=== PATIENT | female | born 1950 | race Caucasian/White ===

== ENCOUNTER → 2017-10-24 09:59 | Outpatient (CLI) | payer MEDICARE, SELFPAY | PROVIDERS: Family Provider Internal Medicine; PCP Internal Medicine; Visit Provider Internal Medicine | DX: Z78.0 Asymptomatic menopausal state (principal) | CPT/HCPCS: 77080 ==

== ENCOUNTER 2019-07-13 02:50 | Emergency (ER) | payer MEDICARE, SELFPAY ==
[2019-07-13 02:51] VITALS: BP 171/95; PULSE 80; RESP 16; TEMP 36.6; O2SAT 98; BMI 40.8
--- NOTE | 2019-07-13 03:02 | CT_ITS ---
STUDY: CT ABDOMEN AND PELVIS WITHOUT CONTRAST REASON FOR EXAM: Female, 68 years old. Sharp upper abdomen pain this evening. No vomiting. Hx of diabetes and HTN. Bilateral leg stents RADIATION DOSAGE (If Supplied By Facility): CTDIvol = ( 22.98 ) mGy, DLP = ( 1171.05 ) mGycm TECHNIQUE: Transaxial images were obtained from the dome of the diaphragm to the symphysis pubis without oral contrast, and without intravenous contrast. Sagittal and coronal images were reconstructed. Individualized dose optimization techniques were used for this CT. COMPARISON: None. FINDINGS: The visualized lung bases are unremarkable. The visualized portions of the heart are within normal limits. There is decreased attenuation of the liver consistent with steatosis. Normal gallbladder and extrahepatic biliary system. Normal spleen. Normal pancreas. Normal right adrenal gland. Small nodule within the left adrenal gland measuring 1.7 x 1.5 cm with Hounsfield units consistent with adenoma. Mild right pelviectasis otherwise normal right kidney. Normal left kidney. Normal visualized stomach. Mild distention of the proximal small bowel loops up to 2.6 cm in maximum dimension with borderline thickening of the wall which may indicate nonspecific enteritis. No significant distention to suggest bowel obstruction. Normal colon. The appendix is visualized and appears normal. There is diffuse atherosclerotic calcification of the abdominal aorta, without a demonstrated aneurysm. Normal inferior vena cava. Normal retroperitoneum. Normal urinary bladder. Anteverted uterus. Normal abdominal wall. There are diffuse degenerative changes of the visualized lumbar spine. CT/Abdomen/Pelvis without Cont IMPRESSION: Diffuse fatty liver. Small left adrenal adenoma as described. Remainder of abdominal viscera are unremarkable. No acute appendicitis. Possible nonspecific enteritis. Differential diagnosis includes early partial small bowel obstruction. Remainder of the exam otherwise unremarkable. Electronically Signed: Leola Jackson MD at 3:52 EDT , Service support ,
--- NOTE | 2019-07-13 03:03 | EKG12_ITS ---
Test Reason : ABD PAIN Blood Pressure : / mmHG Vent. Rate : 084 BPM Atrial Rate : 084 BPM P-R Int : 138 ms QRS Dur : 060 ms QT Int : 348 ms P-R-T Axes : 062 096 083 degrees QTc Int : 411 ms Sinus rhythm with Premature supraventricular complexes Rightward axis Low voltage QRS Septal infarct , age undetermined Abnormal ECG Confirmed by SHAWNA VALE, JAYMIE ([id number]), newspaper copy editor AKIN VERA ([id number]) on 07/16/2019 3:19:44 PM Referred By: SHAYNA Confirmed By:JAYMIE MATOS MD
--- NOTE | 2019-07-13 03:04 | ED.VIS.GEN ---
History of Present Illness Chief Complaint: Abd Pain Informant: Patient Onset: Today Current Severity: Moderate Maximum Severity: Moderate Narrative: Patient presents with upper abdominal pain. She states when she went to bed last evening she started having sharp pains in her upper abdomen. She does have some pain in her lower back as well. She initially thought she did have a bowel movement. She went to the restroom and was able to pass some gas but nothing else. She does report some nausea but no vomiting. She states that the pain started after she took her evening medication. She states sometimes she will swallow air with her pills and she thought she needed to belch, but was unable to. Patient denies reflux type symptoms. She is had no fever or chills. She denies any prior abdominal surgeries. - Past Medical History (1) High cholesterol Status: Chronic (2) Diabetes Status: Chronic (3) Depression Status: Chronic (4) Chronic pain syndrome Status: Chronic (5) HTN (hypertension) Status: Chronic Past Medical History - Allergies and Home Meds Allergies/Adverse Reactions: Allergies iodine Allergy (Verified 07/13/19 02:54) Shortness of breath Primary Care Physician: Triny Ramos DO [Primary Care Provider] - Prior records reviewed: Yes Smoking Status: Former smoker Review of Systems General: Denies: Chills, Fever Eyes: Denies: Visual changes - bilaterally ENT: Denies: Bilateral ear pain Cardiovascular: Denies: Chest pain, Palpitations Respiratory: Denies: Dyspnea, Cough Gastrointestinal: Reports: Abdominal pain, Nausea. Denies: Vomiting, Diarrhea Genitourinary: Denies: Dysuria Musculoskeletal: Reports: Back pain. Denies: Swelling, Extremity Pain Skin: Denies: Rash Neurological: Denies: Headache Psych: Denies: Depression Hematologic: Denies: Easy bruising, Easy bleeding Allergy: Denies: Uticaria Physical Exam Vital Signs/Narrative: Vital Signs Temp Pulse Resp BP Pulse Ox 07/13/19 02:51 97.8 F 80 16 171/95 H 98 Inital Vital Signs reviewed: Yes General: Well nourished, Well developed Head: Normocephalic ENT: Moist mucous membranes Neck: Supple Cardiovascular: Regular rate, Regular rhythm Respiratory: No distress, CTA bilaterally Abdomen: Soft, Normal bowel sounds - Normal to slightly hyperactive bowel sounds., Tender - Mild epigastric tenderness.. Negative for: Guarding, Rebound tenderness Extremities: Nontender Skin: Normal color Neurological: Alert, Oriented x3 Psychological: Normal affect Diagnostic/Tx/Re-eval Impressions Abdomen/Pelvis CT 07/13/19 03:02 IMPRESSION: Diffuse fatty liver. Small left adrenal adenoma as described. Remainder of abdominal viscera are unremarkable. No acute appendicitis. Possible nonspecific enteritis. Differential diagnosis includes early partial small bowel obstruction. Remainder of the exam otherwise unremarkable. Electronically Signed: Leola Jackson MD at 3:52 EDT , Service support , 07/13/19 03:02 Abdomen/Pelvis without Cont [CT] Stat Laboratory Results 07/13/19 07/13/19 07/13/19 02:56 02:56 03:15 WBC 6.4 RBC 5.14 Hgb 15.1 H Hct 46.2 MCV 89.9 MCH 29.4 MCHC 32.7 RDW Std Deviation 42.9 RDW Coeff of Buzz 13.2 Plt Count 247 MPV 9.3 Immature Gran % (Auto) 0.500 Neut % (Auto) 46.6 L Lymph % (Auto) 34.6 [place] % (Auto) 11.1 H Eos % (Auto) 5.9 H Baso % (Auto) 1.3 H Absolute Neuts (auto) 3.0 Absolute Lymphs (auto) 2.21 Nucleated RBC % 0 Sodium 137 Potassium 4.0 Chloride 99 Carbon Dioxide 29.0 Anion Gap 9 BUN 24 H Creatinine 1.50 H Estim Creat Clear Calc 32.75 Est GFR (MDRD) Af Amer 45 L Est GFR (MDRD) Non-Af 37 L BUN/Creatinine Ratio 16.0 Glucose 247 H Calcium 9.2 Total Bilirubin 0.20 Direct Bilirubin 0.08 AST 18 ALT 31 Alkaline Phosphatase 74 Total Protein 7.5 Albumin 3.5 Globulin 4.0 Lipase 129 Urine Color Yellow Urine Clarity Sl. Cloudy Urine pH 6.0 Ur Specific [place] 1.015 Urine Protein 30 H Urine Glucose (UA) 1000 H Urine Ketones Negative Urine Occult Blood Negative Urine Nitrite Negative Urine Bilirubin Negative Urine Urobilinogen Normal Ur Leukocyte Esterase 100 H Urine RBC 0 SEEN Urine WBC 0-5 SEEN Ur Squamous Epith Cells 0-5 SEEN Urine Bacteria 1+ Urine Mucus 0 SEEN - EKG Initial EKG Interpretation: Sinus Rhythm - Sinus at [address] change. - Medical Decision Making Patient was given morphine, Zofran, and IV fluids. On repeat evaluation she feels significantly improved. We discussed her test results. Although she has not eaten in the last 4 to 5 hours she still has significant amount material sitting in her stomach. I will write her prescription for Reglan to use as needed to help with motility. She does have diabetes and may have some slowed motility secondary to this. Patient does not have prior abdominal surgery making bowel obstruction less likely. She has been able to pass gas since this started. She was given return instructions. ED Disposition - Plan for ED Patient: Disposition: Home or Assisted Living Diagnosis: Abdominal pain Instructions: ED Abdominal Pain Unkn Cause Fem Prescriptions: Metoclopramide [Reglan] 10 mg PO 4X/DAY PRN #20 tab PRN Reason: Nausea Transmission Status: Pending to [facility] Referrals: Triny Ramos DO [Primary Care Provider] - 3-5 Days if not improving
[2019-07-13 03:18] LABS: Color, Urine Yellow (Yellow); Glucose, Dipstick 1000 mg/dl (Normal); Ketone-Dipstick Negative (Negative); Leukocyte Esterase-Dipstick 100 /ul (Negative); Mucous, Urine 0 SEEN /hpf (<or=2+); Nitrite-Dipstick Negative (Negative); Occult Blood-Urine Negative /ul (Negative); Protein-Dipstick 30 mg/dl (Negative); Red Blood Cells-Urine 0 SEEN /hpf (0-5); Specific Gravity, Urine 1.015 (1.002-1.030); Urine Bilirubin Dipstick Negative (Negative); Urine Clarity Sl. Cloudy (Clear); Urine Urobilinogen Normal (Normal)
[2019-07-13 03:21] LABS: Absolute Lymphocyte Count 2.21 X10^3/uL (0.83-4.51); Basophil# 0.08 X10^3/uL; Basophil% 1.3 % (0-1); Eosinophil# 0.38 X10^3/uL; Eosinophils% 5.9 % (0-5); Hematocrit 46.2 % (37-47); Hemoglobin 15.1 g/dL (12.0-15.0); Lymphocyte # 2.21 X10^3/ul (4.0); Lymphocyte % 34.6 % (19-41); Mean Corp Hgb Conc 32.7 g/dL (32-36); Mean Corpuscular Hgb 29.4 pg (27.0-32.0); Mean Corpuscular Volume 89.9 fL (81-99); Mean Platelet Vol. 9.3 fl (6.2-12.0); Monocyte# 0.71 X10^3/uL; Monocyte% 11.1 % (0-10); NRBC Flagged by Analyzer 0 % (0-5); Neutrophil # 2.98 X10^3/uL (2.7-7.7); Neutrophil % 46.6 % (47-70); Platelet Count 247 K/mm3 (150-450); RBC Distribution Width CV 13.2 % (11.6-14.6); RBC Distribution Width SD 42.9 fl (35.1-43.9); Red Blood Count 5.14 M/mm3 (4.2-5.4); White Blood Count 6.4 K/mm3 (4.4-11.0)
[2019-07-13] MEDS: Ondansetron 4 MG/2 ML Vial IV (03:22)
[2019-07-13] MEDS: 0.9% Normal Saline 1,000 ML 150 ML IV (03:22)
[2019-07-13] MEDS: Morphine 4 MG/ML Syringe IV (03:23)
[2019-07-13 03:27] LABS: Bacteria 1+ /hpf (None Seen); Squamous Epithelial Cells - UA 0-5 SEEN /hpf (5-10); White Blood Cells 0-5 SEEN /hpf (0-5)
[2019-07-13 03:36] LABS: AST(SGOT) 18 U/L (15-37); Alanine Aminotransfer ALT/SGPT 31 U/L (13-56); Albumin, Serum 3.5 g/dL (3.2-5.0); Alkaline Phosphatase 74 U/L (45-117); Anion Gap 9 (5-15); BUN 24 mg/dL (7-18); Bilirubin, Direct 0.08 mg/dL (0.00-0.30); Calcium,Total 9.2 mg/dL (8.5-10.1); Chloride 99 mmol/L (98-107); EST Glomerular Filtration Rate 37 mL/min (>60); Est Glom Filt Rate - Afr Amer 45 mL/min (>60); Estimated Creatinine Clearance 32.75 ml/min; Glucose 247 mg/dL (74-106); Lipase 129 U/L (73-393); Protein, Total 7.5 g/dL (6.4-8.2); Sodium Level 137 mmol/L (136-145)
[2019-07-13 04:21] VITALS: BP 153/63; PULSE 62; RESP 16; O2SAT 94
== END 2019-07-13 04:22 | disposition home or self-care (01) ==
PROVIDERS: Emergency Provider Emergency Medicine; PCP Internal Medicine
DX: R10.9 Unspecified abdominal pain (principal); R11.0 Nausea; E11.9 Type 2 diabetes mellitus without complications; K76.0 Fatty (change of) liver, not elsewhere classified; D35.02 Benign neoplasm of left adrenal gland; I10 Essential (primary) hypertension; F32.9 Major depressive disorder, single episode, unspecified; E78.00 Pure hypercholesterolemia, unspecified; G89.4 Chronic pain syndrome; Z87.891 Personal history of nicotine dependence
CPT/HCPCS: 74176; 80048; 80076; 81001; 83690; 85025; 93005; 96361; 96374; 96375; 99283; J7030; A4216; J2405

== ENCOUNTER → 2019-10-02 10:03 | Outpatient (CLI) | payer MEDICARE, SELFPAY ==
[2019-10-02 10:33] LABS: Potassium 4.9 mmol/L (3.5-5.1)
== END ==
PROVIDERS: PCP Internal Medicine; Referring Provider Nurse Practitioner; Visit Provider Nurse Practitioner
DX: E87.5 Hyperkalemia (principal)
CPT/HCPCS: 84132

== ENCOUNTER → 2019-11-05 14:18 | Outpatient (CLI) | payer MEDICARE, SELFPAY ==
--- NOTE | 2019-11-05 14:24 | BD_ITS ---
STUDY: DUAL ENERGY X-RAY ABSORPTIOMETRY / DXA REASON FOR EXAM: Female, 69 years old. 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 COMPARISON: Comparison is made with prior study dated 10/24/2017. FINDINGS: Lumbar Spine (L1-L4): g/cm2 (1.501) / T-score (2.7) / Z-score (4.3) Findings are suggestive of normal bone density with a low fracture risk. Left Femur Total: g/cm2 (1.118) / T-score (0.9) / Z-score (2.2) Left Femoral Neck: g/cm2 (1.060) / T-score (0.2) / Z-score (1.8) Right Femur Total: g/cm2 (1.054) / T-score (0.4) / Z-score (1.7) Right Femoral Neck: g/cm2 (1.058) / T-score (0.1) / Z-score (1.7) The T-Scores on the most recent prior examination were: Lumbar Spine (L1-L4): There has been improvement of bone density since the previous examination. Left Femur Total: which represents a worsening of 0.1%. Right Femur Total: which represents a worsening of 2.4%. BD/Dexa Bone Density Study IMPRESSION: The patient is considered normal as outlined below according to World Eliel Organization (WHO) criteria with a low fracture risk. There has been worsening of bone density since the previous examination. Reference Information: The T-score is the number of standard deviations above or below the standard which is normal for young adults at their peak bone mineral density. The World Health Organization (WHO) interprets the T-scores as follows: Above -1 Normal bone density Between -1 and -2.5 Osteopenia Equal to / or below -2.5 Osteoporosis As a practical clinical guideline, osteopenia may be graded as follows: Mild -1 through -1.5 Moderate -1.6 through -2.0 Severe -2.1 through -2.4 The Z-score is the number of standard deviations above or below age-matched controls. A Z-score of less than -1.5 would be considered abnormal. References: 1. NIH Osteoporosis and Related Bone Diseases http://www.osteo.org 2. International Society for Clinical Densitometry http://www.iscd.org 3. National Osteoporosis Foundation http://www.nof.org Electronically Signed: Fercho Ricardo, at 15:13 EDT , Service support ,
== END ==
PROVIDERS: PCP Internal Medicine; Referring Provider Internal Medicine; Visit Provider Internal Medicine
DX: Z78.0 Asymptomatic menopausal state (principal)
CPT/HCPCS: 77080

== ENCOUNTER → 2020-01-21 09:23 | Outpatient (CLI) | payer MEDICARE, SELFPAY ==
--- NOTE | 2020-01-21 09:35 | MRI_ITS ---
STUDY: MRI BRAIN WITHOUT CONTRAST REASON FOR EXAM: Female, 69 years old. vision disturbance, loss of equalibrium TECHNIQUEAn MRI was performed utilizing axial diffusion and ADC map images followed by axial T2 and FLAIR and gradient echo images followed by sagittal and axial T1 weighted images. COMPARISON: None. FINDINGS: The diffusion weighted axial images and ADC map images of the head show no evidence of restricted diffusion. The zaynba, medulla and midbrain and cerebellum appear to be normal. The ventricles and sulci are mildly enlarged due to age-related cerebral atrophy.. The cerebral hemispheres show some scattered nonspecific demyelinating changes in the reyes radiata bilaterally which are often found in patients of this age.The basal ganglia appear to be normal. The gradient echo axial images are normal. No evidence of a Chiari I malformation is identified. The V4 segments of the vertebral artery, the basilar artery, the posterior cerebral arteries, the cavernous and supraclinoid carotid arteries, and the M1 segments of the middle cerebral arteries are all normal The orbits including the optic nerves and optic chiasm appear normal. The pituitary and pituitary infundibulum appear to be normal. The inner and outer tables of the skull are normal The frontal, ethmoid, maxillary, and sphenoid sinuses are normal. The mastoid air cells are normal. MRI/Brain without Contrast IMPRESSION: Mild age-related cerebral atrophy and nonspecific periventricular arteriosclerotic mildly changes. These findings are commonly found in patients of this age. Electronically Signed: Duran Talbot, at 15:41 EST Tel , Service support ,
== END ==
PROVIDERS: PCP Internal Medicine; Referring Provider Internal Medicine; Visit Provider Internal Medicine
DX: H53.9 Unspecified visual disturbance (principal)
CPT/HCPCS: 70551

== ENCOUNTER → 2020-01-22 06:49 | Outpatient (CLI) | payer MEDICARE, SELFPAY ==
--- NOTE | 2020-01-22 06:54 | CDU_ITS ---
Reason For Study: VISION DISTURBANCE Rt. Velocities/BP Lt. Velocities/BP Prox CCA 62.1/11.2 cm/sec. Prox CCA 119.8/23.0 cm/sec. Mid CCA 67.3/12.5 cm/sec. Mid CCA 88.8/17.5 cm/sec. Dist CCA 72.5/15.1 cm/sec. Dist CCA 77.3/10.9 cm/sec. Prox ICA 62.5/20.8 cm/sec. Prox ICA 66.2/15.8 cm/sec. Mid ICA 75.7/29.6 cm/sec. Mid ICA 89.5/23.2 cm/sec. Dist ICA 94.1/19.3 cm/sec. Dist ICA 79.7/24.4 cm/sec. Rt. ICA/CCA = 94.1/72.5=1.3. Lt. ICA/CCA = 89.5/88.8=1.0. Prox ECA 98.6/11.2 cm/sec. Prox ECA 121.6/6.6 cm/sec. Rt. Vert. 46.1/10.9 cm/sec. Lt. Vert. 41.6/9.7 cm/sec. Right Extracranial There is homogeneous, smooth atherosclerotic plaque noted in the right common carotid artery. There is intimal thickening but no significant atherosclerotic plaque noted in the right internal carotid artery. There is no significant atherosclerotic plaque noted in the right external carotid artery. Antegrade flow is noted in the right vertebral artery. There is heterogeneous, irregular atherosclerotic plaque noted in the right bulb. Left Extracranial There is homogeneous, smooth atherosclerotic plaque noted in the left common carotid artery. There is homogeneous, smooth atherosclerotic plaque noted in the left internal carotid artery. There is intimal thickening but no significant atherosclerotic plaque noted in the left external carotid artery. Antegrade flow is noted in the left vertebral artery. There is heterogeneous, irregular atherosclerotic plaque noted in the left bulb. Procedure Carotid Duplex [id number]. The exam was diagnostic. Exam performed in department. Interpretation Summary Mild (<50%) stenosis right extracranial internal carotid. Mild (<50%) stenosis left extracranial internal carotid. Flow within the vertebral arteries is antegrade bilaterally. Heterogeneous, irregular atherosclerotic plaque is noted in the carotid bulbs bilaterally, which does not appear to be hemodynamically significant. Ordering Physician: Triny Ramos Referring Physician: Triny Ramos Performed By: Viktoriya Hall, ZECHARIAH, RVT
--- NOTE | 2020-01-22 16:44 | STRESSREP ---
Stress Test Report Pharmacologic myocardial perfusion stress test. 69-year-old lady with a history of chest pain. Stress protocol: Resting EKG demonstrates normal sinus rhythm with a rate of 80 bpm normal intervals are noted resting blood pressure is 122/82 mmHg. 0.4 mg of regadenoson was infused per usual protocol. The maximum heart rate attained was 107 bpm which was 70% of maximum predicted heart rate the maximum workload was 1 metabolic equivalent. At rest there were no ST or T wave changes noted to suggest ischemia at peak infusion nonspecific ST-T wave changes were noted with no meet the criteria for ischemia. No clinical angina was noted. Myocardial perfusion protocol. 14.5 mCi of technetium 99m sestamibi was injected at rest. 0.4 mg of regadenoson was infused per usual protocol. At peak infusion 44.7 mCi of technetium 99m sestamibi was injected stress images were obtained stress and rest images were reconstructed and compared in the short axis vertical long horizontal long axis. Gated images were also obtained for Perfusion SPECT analysis: Review of the stress images demonstrate normal uptake of tracer noted in all areas of the myocardium the resting images similar demonstrate normal uptake of tracer noted in all areas of the myocardium. No reversibility is noted suggest ischemia no previous infarct is noted. Gated SPECT analysis: The gated ejection fraction is 70%. Conclusion: Normal pharmacologic myocardial perfusion stress test. Preserved ejection fraction.
== END ==
PROVIDERS: PCP Internal Medicine; Referring Provider Internal Medicine; Visit Provider Internal Medicine
DX: R94.31 Abnormal electrocardiogram [ECG] [EKG] (principal); H53.133 Sudden visual loss, bilateral; R11.0 Nausea
CPT/HCPCS: 78452; 93017; 93880; A9500; A4216; J2785

== ENCOUNTER → 2020-10-10 11:57 | Outpatient (CLI) | payer MEDICARE, SELFPAY ==
[2020-10-10 12:51] LABS: Potassium 4.5 mmol/L (3.5-5.1)
== END ==
PROVIDERS: PCP Internal Medicine; Referring Provider Internal Medicine; Visit Provider Internal Medicine
DX: E87.5 Hyperkalemia (principal)
CPT/HCPCS: 36415; 84132

== ENCOUNTER 2021-02-02 11:37 | Emergency (ER) | payer MEDICARE, SELFPAY ==
[2021-02-02 11:38] VITALS: BP 192/88; PULSE 81; RESP 18; TEMP 36.3; O2SAT 100; BMI 40.6
--- NOTE | 2021-02-02 13:00 | CT_ITS ---
STUDY: CT Abdomen And Pelvis W/O Contrast Injection 02/02/2021 3:29 PM REASON FOR EXAM: Female, 70 years old. ABDOMINAL PAIN LLQ pain TECHNIQUE: Transaxial images were obtained without oral contrast, and without intravenous contrast. Individualized dose optimization techniques were used for this CT. COMPARISON: 07.13.19. FINDINGS: The visualized lung bases are unremarkable. The visualized portions of the heart are within normal limits. There is decreased attenuation of the liver consistent with steatosis. Normal gallbladder and extrahepatic biliary system. Normal spleen. Normal pancreas. Normal bilateral adrenal glands. No acute findings of the right kidney. No acute findings of the left kidney. Normal visualized stomach. Normal small intestine. There is subtle inflammation of the distal descending colon suggesting a mild colitis. There is non-visualization of the appendix. There are calcifications of the abdominal aorta. This is consistent for atherosclerotic disease. There is no abdominal aortic aneurysm. Normal inferior vena cava. Subcentimeter mesenteric lymph nodes. Normal urinary bladder. Normal visualized adnexa. Normal abdominal wall. There are diffuse degenerative changes of the visualized lumbar spine. Degenerative findings of the hips. IMPRESSION: (NOT LISTED IN ORDER OF SIGNIFICANCE) Fatty liver. There is subtle inflammation of the distal descending colon suggesting a mild colitis. Other findings as above. Electronically Signed: Patrice Pastrana MD at 15:37 EST , Service support , CT/Abdomen/Pelvis without Cont
--- NOTE | 2021-02-02 13:01 | ED.VIS.GI ---
HPI <Rafiq Palma MD - Last Filed: 02/03/21 07:27> HPI - GI History of Present Illness Chief Complaint: GI Bleed Narrative Narrative: Patient presents with bright red blood per rectum since yesterday afternoon between 2 and 4 PM. She states that she had a normal bowel movement yesterday morning. She was out running errands. She had sharp pain in her left flank that felt like razor blades. She then had a bowel movement, or what she thought was going to be a bowel movement and passed mucus with bright red blood. She states that her anus began to spasm, and she had blood in the toilet. This happened 2 more times overnight. She denies any chest pain or lightheadedness, no syncope. She has some abdominal discomfort in the left upper the lower quadrant. She denies any dysuria or hematuria. The only blood thinner that she takes is a daily full-strength aspirin. She denies any other bleeding diathesis. PFSH <Rafiq Palma MD - Last Filed: 02/03/21 07:27> [facility] Home Medications Lisinopril/Hydrochlorothiazide [Zestoretic 15/02.5 Tablet] 1 tab PO DAILY 12/20/12 [History Last Taken Unknown] amlodipine 5 mg PO DAILY 12/20/12 [History Last Taken Unknown] aspirin 325 mg PO DAILY@0800 12/20/12 [History Last Taken Unknown] glimepiride 2 mg PO DAILY 12/20/12 [History Last Taken Unknown] metformin 500 mg PO BIDCM 12/20/12 [History Last Taken Unknown] simvastatin 20 mg PO QHS 12/20/12 [History Last Taken Unknown] dulaglutide 0.75 mg SQ QWEEK 07/13/19 [History Last Taken Unknown] metoclopramide HCl 10 mg PO 4X/DAY PRN #20 tab 07/13/19 [Rx Last Taken Unknown] ciprofloxacin HCl 500 mg PO BID #20 tablet 02/02/21 [Rx Last Taken Unknown] metronidazole 500 mg PO Q6H #40 tab 02/02/21 [Rx Last Taken Unknown] Allergy/AdvReac Type Severity Reaction Status Date / Time iodine Allergy Shortness Verified 02/02/21 11:37 of breath Social History Smoking Status: Former smoker ROS <Rafiq Palma MD - Last Filed: 02/03/21 07:27> ROS ED ROS Narrative Constitutional: No fever, no chills. HEENT: No sore throat. No neck pain. No loss of vision. No rhinorrhea. Cardiovascular: No chest pain. No palpitations. No pedal edema. Respiratory: No cough, no shortness of breath. Abdominal: Left-sided abdominal pain. No nausea. No vomiting. Positive bright red blood per rectum. Genitourinary: No dysuria. No hematuria. Musculoskeletal: No myalgias. No arthralgias. Neurologic: No headaches. No dizziness. No lightheadedness. Skin: No rash. No change in color. Psychiatric: No depression. No anxiety. EXAM <Rafiq Palma MD - Last Filed: 02/03/21 07:27> Physical Exam Narrative Exam Narrative: Afebrile. Vital signs noted. HEENT: Normocephalic. Atraumatic. PERRL, EOMI. Neck soft and supple. No point tenderness or step off. Cardiovascular: Regular rate and rhythm. No murmurs, rubs, or gallops appreciated. Respiratory: No tachypnea. Lungs clear to auscultation bilaterally. Gastrointestinal: Abdomen soft, nontender, with normoactive bowel sounds. No rebound or guarding. Neurological: Awake. Alert. Nonfocal, nonlateralizing. Skin: No rash. Normal color. No pallor. Musculoskeletal: No pedal edema. Full range of motion extremities. Const Vital Signs: 02/02/21 11:38 02/02/21 15:22 02/02/21 18:18 Temperature 97.4 F L Temperature Source Temporal Pulse Rate 81 80 80 Respiratory Rate 18 18 18 Blood Pressure 192/88 H 136/52 H 137/84 H Blood Pressure Mean 122 80 Pulse Ox 100 96 98 Oxygen Delivery Method Room Air <Dr. Tristan Chavira DO - Last Filed: 02/02/21 17:27> Physical Exam Const Vital Signs: 02/02/21 11:38 02/02/21 15:22 02/02/21 18:18 Temperature 97.4 F L Temperature Source Temporal Pulse Rate 81 80 80 Respiratory Rate 18 18 18 Blood Pressure 192/88 H 136/52 H 137/84 H Blood Pressure Mean 122 80 Pulse Ox 100 96 98 Oxygen Delivery Method Room Air MDM <Rafiq Palma MD - Last Filed: 02/03/21 07:27> [facility] Narrative Medical decision making narrative: Comprehensive work-up was pursued. I will obtain chaperoned rectal examination. CT of the abdomen pelvis was also obtained. Chaperoned rectal examination showed no pura/gross blood or hemorrhage. Stool color/small amount was normal in color and there was a small amount of dark red blood noted. It is Hemoccult positive. She does have a normal white count. She had an elevated lactic acid of 3.0. She was administered 2 L of IV fluids with repeat lactic acid and CT scan pending. At this point in time, patient will be signed out to the oncoming physician to check the results of the CAT scan and make final disposition. Patient is in stable condition. Lab Data Labs: Laboratory Results - last 24 hr 02/02/21 02/02/21 02/02/21 13:31 13:31 13:31 WBC 6.8 RBC 5.14 Hgb 15.0 Hct 45.8 MCV 89.1 MCH 29.2 MCHC 32.8 RDW Std Deviation 41.8 RDW Coeff of Buzz 12.8 Plt Count 286 MPV 9.2 Immature Gran % (Auto) 0.400 Neut % (Auto) 63.0 Lymph % (Auto) 23.8 [place] % (Auto) 6.9 Eos % (Auto) 4.6 Baso % (Auto) 1.3 H Absolute Neuts (auto) 4.3 Absolute Lymphs (auto) 1.62 Nucleated RBC % 0 Sodium 138 Potassium 4.9 Chloride 103 Carbon Dioxide 27.0 Anion Gap 8 BUN 15 Creatinine 1.38 H Estim Creat Clear Calc 34.62 Est GFR (MDRD) Af Amer 49 L Est GFR (MDRD) Non-Af 40 L BUN/Creatinine Ratio 10.9 Glucose 178 H Lactic Acid 3.0 H* Calcium 9.6 Total Bilirubin 0.50 AST 22 ALT 28 Alkaline Phosphatase 79 Total Protein 7.8 Albumin 3.4 Globulin 4.4 H Albumin/Globulin Ratio 0.8 L Urine Color Urine Clarity Urine pH Ur Specific [place] Urine Protein Urine Glucose (UA) Urine Ketones Urine Occult Blood Urine Nitrite Urine Bilirubin Urine Urobilinogen Ur Leukocyte Esterase Urine RBC Urine WBC Ur Squamous Epith Cells Urine Bacteria Urine Mucus 02/02/21 02/02/21 14:50 16:15 WBC RBC Hgb Hct MCV MCH MCHC RDW Std Deviation RDW Coeff of Buzz Plt Count MPV Immature Gran % (Auto) Neut % (Auto) Lymph % (Auto) [place] % (Auto) Eos % (Auto) Baso % (Auto) Absolute Neuts (auto) Absolute Lymphs (auto) Nucleated RBC % Sodium Potassium Chloride Carbon Dioxide Anion Gap BUN Creatinine Estim Creat Clear Calc Est GFR (MDRD) Af Amer Est GFR (MDRD) Non-Af BUN/Creatinine Ratio Glucose Lactic Acid 1.8 Calcium Total Bilirubin AST ALT Alkaline Phosphatase Total Protein Albumin Globulin Albumin/Globulin Ratio Urine Color Yellow Urine Clarity Sl. Cloudy Urine pH 5.0 Ur Specific [place] 1.020 Urine Protein Negative Urine Glucose (UA) 1000 H Urine Ketones Negative Urine Occult Blood Negative Urine Nitrite Negative Urine Bilirubin Negative Urine Urobilinogen Normal Ur Leukocyte Esterase 25 H Urine RBC 0 SEEN Urine WBC 0-5 SEEN Ur Squamous Epith Cells 0-5 SEEN Urine Bacteria 1+ Urine Mucus 0 SEEN Radiography Diagnostic Testing: Clinical Impression(s) from Imaging Studies Abdomen/Pelvis CT 02/02/21 13:00 ADDENDUM: 02/02/21 1550 <Dr. Tristan Chavira, DO - Last Filed: 02/02/21 17:27> [facility] MDM Narrative Medical decision making narrative: Care with patient was turned over to me. CBC was within normal limits. Comprehensive metabolic profile showed a slightly elevated creatinine 1.38. Lactate was 3.0. Urinalysis was ordered and is within normal limits. CT scan of the abdomen and pelvis was obtained. There is evidence of mild colitis. There is no other acute abnormality noted. This was interpreted by the radiologist and reviewed by myself. Patient was given IV fluids. Repeat lactate was ordered and is normal at 1.8. Patient was given a dose of Cipro and Flagyl here. Patient with advised of her findings. Patient was instructed to drink plenty of fluids. Patient was instructed to start with a bland diet. Patient was given prescriptions for Cipro and Flagyl. Patient was instructed to follow-up with her primary care physician in 5 to 7 days. Patient understood and was agreeable with the plan. All questions were answered. Lab Data Attestation: I reviewed the patient's lab results. Labs: Laboratory Results - last 24 hr 02/02/21 02/02/21 02/02/21 13:31 13:31 13:31 WBC 6.8 RBC 5.14 Hgb 15.0 Hct 45.8 MCV 89.1 MCH 29.2 MCHC 32.8 RDW Std Deviation 41.8 RDW Coeff of Buzz 12.8 Plt Count 286 MPV 9.2 Immature Gran % (Auto) 0.400 Neut % (Auto) 63.0 Lymph % (Auto) 23.8 [place] % (Auto) 6.9 Eos % (Auto) 4.6 Baso % (Auto) 1.3 H Absolute Neuts (auto) 4.3 Absolute Lymphs (auto) 1.62 Nucleated RBC % 0 Sodium 138 Potassium 4.9 Chloride 103 Carbon Dioxide 27.0 Anion Gap 8 BUN 15 Creatinine 1.38 H Estim Creat Clear Calc 34.62 Est GFR (MDRD) Af Amer 49 L Est GFR (MDRD) Non-Af 40 L BUN/Creatinine Ratio 10.9 Glucose 178 H Lactic Acid 3.0 H* Calcium 9.6 Total Bilirubin 0.50 AST 22 ALT 28 Alkaline Phosphatase 79 Total Protein 7.8 Albumin 3.4 Globulin 4.4 H Albumin/Globulin Ratio 0.8 L Urine Color Urine Clarity Urine pH Ur Specific [place] Urine Protein Urine Glucose (UA) Urine Ketones Urine Occult Blood Urine Nitrite Urine Bilirubin Urine Urobilinogen Ur Leukocyte Esterase Urine RBC Urine WBC Ur Squamous Epith Cells Urine Bacteria Urine Mucus 02/02/21 02/02/21 14:50 16:15 WBC RBC Hgb Hct MCV MCH MCHC RDW Std Deviation RDW Coeff of Buzz Plt Count MPV Immature Gran % (Auto) Neut % (Auto) Lymph % (Auto) [place] % (Auto) Eos % (Auto) Baso % (Auto) Absolute Neuts (auto) Absolute Lymphs (auto) Nucleated RBC % Sodium Potassium Chloride Carbon Dioxide Anion Gap BUN Creatinine Estim Creat Clear Calc Est GFR (MDRD) Af Amer Est GFR (MDRD) Non-Af BUN/Creatinine Ratio Glucose Lactic Acid 1.8 Calcium Total Bilirubin AST ALT Alkaline Phosphatase Total Protein Albumin Globulin Albumin/Globulin Ratio Urine Color Yellow Urine Clarity Sl. Cloudy Urine pH 5.0 Ur Specific [place] 1.020 Urine Protein Negative Urine Glucose (UA) 1000 H Urine Ketones Negative Urine Occult Blood Negative Urine Nitrite Negative Urine Bilirubin Negative Urine Urobilinogen Normal Ur Leukocyte Esterase 25 H Urine RBC 0 SEEN Urine WBC 0-5 SEEN Ur Squamous Epith Cells 0-5 SEEN Urine Bacteria 1+ Urine Mucus 0 SEEN Radiography Diagnostic Testing: Clinical Impression(s) from Imaging Studies Abdomen/Pelvis CT 02/02/21 13:00 ADDENDUM: 02/02/21 1550 Discharge Plan Triage Chief Complaint: GI Bleed ED Provider: Tristan Chavira Dx/Rx/DC Orders Clinical Impression: Colitis, Gastrointestinal bleeding Instructions: ED Understanding Colitis, ED Lower GI Bleeding (Stable) Prescriptions: New metronidazole [metronidazole] 500 MG tablet 500 mg PO Q6H Qty: 40 RF: 0 ciprofloxacin HCl [ciprofloxacin HCl] 500 MG tablet 500 mg PO BID Qty: 20 RF: 0 No Action metformin 500 MG tablet 500 mg PO BIDCM RF: 0 amlodipine 5 MG tablet 5 mg PO DAILY RF: 0 glimepiride 2 MG tablet 2 mg PO DAILY RF: 0 aspirin 325 MG tablet 325 mg PO DAILY@0800 RF: 0 simvastatin 20 MG tablet 20 mg PO QHS RF: 0 Lisinopril/Hydrochlorothiazide [Zestoretic 20/12.5 Tablet] 1 TABLET tablet 1 tab PO DAILY RF: 0 dulaglutide 0.75 MG/0.5 ML pen injector 0.75 mg SQ QWEEK RF: 0 metoclopramide HCl 10 MG tablet 10 mg PO 4X/DAY PRN (Reason: Nausea) Qty: 20 RF: 0 Primary Care Provider: Triny Ramos Referrals: Triny Ramos DO [Primary Care Provider] - 3-5 Days Disposition Disposition: Home, Self Care Discharge Date/Time: 02/02/21 18:20
[2021-02-02 13:43] LABS: Absolute Lymphocyte Count 1.62 X10^3/uL (0.83-4.51); Absolute Neutrophil Count 4.3 X10^3/uL (2.0-7.7); Basophil# 0.09 X10^3/uL; Basophil% 1.3 % (0-1); Eosinophil# 0.31 X10^3/uL; Eosinophils% 4.6 % (0-5); Hematocrit 45.8 % (37-47); Lymphocyte # 1.62 X10^3/ul (0.83-4.51); Lymphocyte % 23.8 % (19-41); Mean Corp Hgb Conc 32.8 g/dL (32-36); Mean Corpuscular Hgb 29.2 pg (27.0-32.0); Mean Corpuscular Volume 89.1 fL (81-99); Mean Platelet Vol. 9.2 fl (6.2-12.0); Monocyte# 0.47 X10^3/uL; Monocyte% 6.9 % (0-10); NRBC Flagged by Analyzer 0 % (0-5); Neutrophil # 4.28 X10^3/uL (2.7-7.7); Platelet Count 286 K/mm3 (150-450); RBC Distribution Width CV 12.8 % (11.6-14.6); RBC Distribution Width SD 41.8 fl (35.1-43.9); Red Blood Count 5.14 M/mm3 (4.2-5.4); White Blood Count 6.8 K/mm3 (4.4-11.0)
[2021-02-02 14:04] LABS: ALB/GLOB Ratio 0.8 RATIO (0.9-2.4); AST(SGOT) 22 U/L (15-37); Alanine Aminotransfer ALT/SGPT 28 U/L (13-56); Albumin, Serum 3.4 g/dL (3.2-5.0); Alkaline Phosphatase 79 U/L (45-117); Anion Gap 8 (5-15); BUN 15 mg/dL (7-18); BUN/Creat Ratio 10.9 RATIO (10-20); Calcium,Total 9.6 mg/dL (8.5-10.1); Chloride 103 mmol/L (98-107); Creatinine, Serum 1.38 mg/dL (0.55-1.02); EST Glomerular Filtration Rate 40 mL/min (>60); Est Glom Filt Rate - Afr Amer 49 mL/min (>60); Estimated Creatinine Clearance 34.62 ml/min; Globulin 4.4 g/dL (2.2-4.2); Glucose 178 mg/dL (74-106); Potassium 4.9 mmol/L (3.5-5.1); Protein, Total 7.8 g/dL (6.4-8.2); Sodium Level 138 mmol/L (136-145)
[2021-02-02] MEDS: 0.9% Normal Saline 1,000 ML 999 ML IV ×2 (15:02→15:30)
[2021-02-02 15:05] LABS: Mucous, Urine 0 SEEN /hpf (<or=2+)
[2021-02-02 15:22] VITALS: BP 136/52; PULSE 80; RESP 18; O2SAT 96
[2021-02-02 15:31] LABS: Color, Urine Yellow (Yellow); Glucose, Dipstick 1000 mg/dl (Normal); Ketone-Dipstick Negative (Negative); Leukocyte Esterase-Dipstick 25 /ul (Negative); Nitrite-Dipstick Negative (Negative); Occult Blood-Urine Negative /ul (Negative); Protein-Dipstick Negative (Negative); Urine Bilirubin Dipstick Negative (Negative); Urine Clarity Sl. Cloudy (Clear); Urine Urobilinogen Normal (Normal)
[2021-02-02 15:40] LABS: Bacteria 1+ /hpf (None Seen); Red Blood Cells-Urine 0 SEEN /hpf (0-5); Squamous Epithelial Cells - UA 0-5 SEEN /hpf (5-10); White Blood Cells 0-5 SEEN /hpf (0-5)
[2021-02-02] MEDS: Ciprofloxacin 500 MG Tablet PO (16:01)
[2021-02-02] MEDS: metroNIDAZOLE 500 MG Tablet PO (16:01)
[2021-02-02 16:51] LABS: Lactic Acid 1.8 mmol/L (0.4-1.9)
[2021-02-02 17:39] LABS: Reflex Lactate? Y
[2021-02-02 18:18] VITALS: BP 137/84; PULSE 80; RESP 18; O2SAT 98
== END 2021-02-02 18:20 | disposition home or self-care (01) ==
PROVIDERS: Emergency Medicine; Emergency Provider Emergency Medicine; PCP Internal Medicine
DX: K52.9 Noninfective gastroenteritis and colitis, unspecified (principal); K76.0 Fatty (change of) liver, not elsewhere classified; Z79.82 Long term (current) use of aspirin; Z79.84 Long term (current) use of oral hypoglycemic drugs; Z87.891 Personal history of nicotine dependence
CPT/HCPCS: 74176; 80053; 81001; 82274; 83605; 85025; 99284; J7030; A4216

== ENCOUNTER 2021-03-17 09:02 | Day surgery (SDC) | payer MEDICARE, SELFPAY ==
--- NOTE | 2021-03-17 | IMM_PTH ---
PATIENT: LILY SZYMANSKI LOC: EN U#:[id number] AGE/SX: 70/F ROOM: RE03/17/[address]: Dr. Faraz Church DO : 1950 BED: DIS: 03/17/2021 SPEC #: [id number] RECD: 03/19/21 15:01 STATUS: MARCOS REKaye #: [id number] BEATA: 03/17/21 00:[address]: Faraz Church DEPT: IMMUNOHISTOCHEMISTRY RECD BY: Lenora Machado ENTERED: 03/19/21 15:02 SP TYPE: IMMUNO OTHR DR: Dr. Triny Ramos DO Tissues: A - Stomach, NOS Procedures: H Pylori (initial) PHYSICIAN & INSTITUTION [place] [id number] SPECIMEN INFORMATION: Tissue Source: A ? Gastric ulcer biopsy Clinical Info: Diabetes, colitis, GI bleeding Specimen Number: [id number] CPT code: 36378 METHODOLOGY: Deparaffinized sections of prefer/formalin-fixed tissue or PAP/DQ stained slides are incubated with monoclonal/polyclonal antibodies/oligonucleotide probes. Localization is made via biotin free immunoperoxidase method. Appropriate controls are performed and reacted as expected. Results on target cell population are indicated in the following table: RESULTS: ANTIBODY / CLONE RESULT Block A H Pylori (polyclonal) negative These tests were developed and their performance characteristics determined by [facility]. They may not have been cleared or approved by the U.S. Food and Drug Administration. The FDA has determined that such clearance or approval is not necessary. The above immunohistochemical/dualISH markers are ordered and reviewed by the Pathologist. INTERPRETATION: A. Gastric ulcer, biopsy: Negative for Helicobacter pylori organisms. AM:deric 03/22/2021
[2021-03-17 09:27] VITALS: BP 122/74; PULSE 54; RESP 18; TEMP 36.3; O2SAT 100; BMI 39.1
[2021-03-17] MEDS: Lactated Ringers 1,000 ML 15 ML IV (09:40)
--- NOTE | 2021-03-17 09:44 | HP.PCM_ITS ---
History and Physical Date of Admission: 03/17/21 70 F who presents to the office today for Last Monday she had some difficulty with expelling blood clots from rectum overnight. She then presented to [facility] ED on 02/02/21. She was told she had diverticulitis versus colitis and then she was dehydrated. Given two antibiotics and two bags of fluid. Resolution of blood clots. Since stop she had bowel change where her stools were liquid for two days. She then went to more solid bowel movement and then constipation. Current stools are very dark and have the appearance of shredded wheat. Taking Trulicity and when she first started several years ago she had a lot of difficulty with diarrhea that then resolved. Feels she is dehydrated now because of headache, spinning when she moves too quickly. CT abd/pel performed 02/02/21 mild colitis of descending colon. ROS Const Constitutional: Positive for fatigue Cardio Cardiology: Positive for shortness of breath Gastro GI: Positive for abdominal pain, bloating, change in bowel habits, constipation, diarrhea, Blood in stool and nausea/dyspepsia Musc Musculoskeletal: Positive for back pain and stiffness Skin Skin: Positive for dry skin Endo Endocrine: Positive for fatigue Reese/Lymp Hematologic/Lymphatic: Positive for easy bruising Exam Const General: cooperative and comfortable Nutritional Appearance: average body habitus and well nourished HENWY Head: normal to inspection Ears: hearing grossly normal bilaterally Nose: external nose normal Face and sinus: normal facial exam Mouth: oral mucosae normal Throat: posterior oropharynx normal Eyes General: appearance normal, both eyes and all related structures Neck Neck: normal visual inspection Chest Chest palpation & inspection: normal inspection of the chest and normal palpation of entire chest wall Resp Effort & Inspection: normal respiratory effort Auscultation: Bilateral: Clear to Auscultation Cardio Palpation: normal PMI Rate: regular rate Rhythm: regular rhythm GI Inspection: normal to inspection Auscultation: normal bowel sounds Percussion: normal to percussion Palpation: no hepatosplenomegaly Skin General: no rashes or lesions noted Neuro General: patient alert Extrem General: normal to inspection Psych Affect: normal affect Quality Reporting Tobacco Screening ([facility] 138) Smoking Status: Former smoker Assessment and Plan Assessment and Plan (1) Diabetes: Status: Chronic Orders: Orders: Comprehensive Metabolic Profil Today (2) Colitis: Status: Acute Orders: Orders: Comprehensive Metabolic Profil Today Plan - Dr. Ruth Friend, DO: I suspect that she has ischemic colitis. We went over in great detail the natural history of ischemic colitis in the distribution of the inflammation seen on her case CAT scan. We will need to do a colonoscopy to confirm this. For now we will give her a short course of dicyclomine therapy to prevent cramping and hopefully stop her from having of episode. (3) Gastrointestinal bleeding: Status: Acute Orders: Orders: Colonoscopy Today EGD Today Comprehensive Metabolic Profil Today CT ANGIO ABD&PEL W/O&W/DYE Today Plan - Dr. Ruth Friend, DO: GI bleed thought to be secondary ischemic colitis. We will get a CT angiography. We will also get an upper lower endoscopy to evaluate upper lower GI tract. Plan Details Other Medications: New: bisacodyl Take as directed for bowel prep 5 mg PO ONCE 4 tabs 0RF polyethylene glycol 3350 (Miralax) Take as directed for bowel prep 17 grams PO DAILY 238 grams 0RF I have re-examined the patient. There are no clinical changes since date of exam.
[2021-03-17 09:46] LABS: Bedside Glucose 275 mg/dL (70-110)
--- NOTE | 2021-03-17 10:15 | EGD_PTH ---
PATIENT: LILY SZYMANSKI LOC: EN U#:[id number] AGE/SX: 70/F ROOM: RE03/17/[address]: Dr. Faraz Church DO : 1950 BED: DIS: 03/17/2021 SPEC #: [id number] RECD: 03/17/21 12:42 STATUS: MARCOS REKaye #: [id number] BEATA: 03/17/21 10:[address]: Faraz Church DEPT: SURGICAL PATHOLOGY RECD BY: Jojo Ortiz ENTERED: 03/17/21 13:14 SP TYPE: EGD [facility] DR: Dr. Triny Ramos DO Tissues: A - Gastric mucous membrane B - Esophagus, NOS Procedures: Special Stain Group II Surgery Specimen Level IV Alcian Blue/PAS (control) HEADER OPERATION: Colonoscopy, EGD ([facility]) with biopsy, cauterization of GI bleed PRE-OP DIAGNOSIS: Diabetes, colitis, GI bleeding TISSUE SUBMITTED: A ? Gastric ulcer biopsy, B ? Distal esophagus biopsy MICROSCOPIC DIAGNOSIS A. Gastric ulcer, biopsy: Mucosal ulceration with acute and chronic inflammation. See comment. B. Distal esophagus, biopsy: Gastroesophageal junctional mucosa with mild chronic inflammation. No evidence of goblet cell metaplasia. See comment. AM:deric 03/18/2021 COMMENT A. The results of immunohistochemistry for Helicobacter pylori will be reported separately ([id number]). B. Alcian blue/PAS stain with matched control supports the above diagnosis. MICROSCOPIC DESCRIPTION Slides are reviewed. GROSS DESCRIPTION A - Received in fixative is one container labeled with the patient's name and designated gastric ulcer biopsy. The specimen consists of two irregular fragments of light tabor soft tissue that in aggregate measure 0.6 x 0.3 x 0.1 cm. The specimen is totally submitted in one cassette. B - Received in fixative is one container labeled with the patient's name and designated distal esophagus biopsy. The specimen consists of multiple irregular fragments of light tabor soft tissue that in aggregate measure 1 x 0.4 x 0.1 cm. The specimen is totally submitted in one cassette. / JOSIAS:deric 03/17/2021 TC:3 CPT: 99469 x2, 97342
[2021-03-17 10:55] VITALS: BP 120/65; BP 122/74; PULSE 53; RESP 20; TEMP 36.2; O2SAT 97
--- NOTE | 2021-03-17 10:59 | OP.CCLET_ITS ---
11/04/2021 Triny Ramos [address] [place] [address] Re : Upper GI endoscopy procedure for Alize Macedo Dear Dr. Ramos This procedure was performed on Wednesday, March 17, 2021. My impressions and recommendations are as follows: Impressions : - LA Grade A reflux esophagitis. Biopsied. - Moderate Schatzki ring. Dilated. - Small hiatal hernia. - Oozing gastric ulcer with pigmented material. Treated with a heater probe. - Normal second portion of the duodenum. Recommendations : - Discharge patient to home. - Advance diet as tolerated. - Continue present medications. - No aspirin, ibuprofen, naproxen, or other non-steroidal anti-inflammatory drugs for 7 days. - Repeat upper endoscopy in 1 year for surveillance based on pathology results. - Return to GI office. - Use Protonix (pantoprazole) 40 mg PO BID for 8 weeks. My findings are described in the full procedure note, which is enclosed. If I can be of further assistance, please feel free to contact me at . Sincerely, Faraz Church, 03/17/2021 10:58:33 AM This report has been signed electronically.
--- NOTE | 2021-03-17 10:59 | OP.EGD_ITS ---
Patient Name: Alize Macedo Procedure Date: 03/17/2021 9:52 AM Date of : 1950 Age: 70 Procedure: Upper GI endoscopy Indications: Heartburn Providers: Faraz Church DO Referring MD: Faraz Church DO Medicines: See the Anesthesia note for documentation of the administered medications Patient Profile: This is a 70 year old female. Refer to note in patient chart for documentation of history and physical. Patient has symptoms of chronic abdominal cramping. Complications: No immediate complications. Procedure: Pre-Anesthesia Assessment: - Prior to the procedure, a History and Physical was performed, and patient medications and allergies were reviewed. The patient is competent. The risks and benefits of the procedure and the sedation options and risks were discussed with the patient. All questions were answered and informed consent was obtained. Patient identification and proposed procedure were verified by the physician in the pre-procedure area. Mental Status Examination: alert and oriented. Airway Examination: normal oropharyngeal airway and neck mobility. Respiratory Examination: clear to auscultation. CV Examination: normal. Prophylactic Antibiotics: The patient does not require prophylactic antibiotics. Prior Anticoagulants: The patient has taken no previous anticoagulant or antiplatelet agents. ASA Grade Assessment: II - A patient with mild systemic disease. After reviewing the risks and benefits, the patient was deemed in satisfactory condition to undergo the procedure. The anesthesia plan was to use moderate sedation / analgesia (conscious sedation). Immediately prior to administration of medications, the patient was re-assessed for adequacy to receive sedatives. The heart rate, respiratory rate, oxygen saturations, blood pressure, adequacy of pulmonary ventilation, and response to care were monitored throughout the procedure. The physical status of the patient was re-assessed after the procedure. After obtaining informed consent, the endoscope was passed under direct vision. Throughout the procedure, the patient's blood pressure, pulse, and oxygen saturations were monitored continuously. The colonoscope was introduced through the mouth, and advanced to the second part of duodenum. The upper GI endoscopy was accomplished without difficulty. The patient tolerated the procedure well. Moderate Sedation: Moderate (conscious) sedation was administered by the endoscopy nurse and supervised by the endoscopist. The patient's oxygen saturation, heart rate, blood pressure and response to care were monitored. Total physician intraservice time was 15 minutes. Scope In: 10:16:11 AM Scope Out: 10:22:03 AM Total Procedure Duration Time 0 hours 5 minutes 52 seconds Findings: LA Grade A (one or more mucosal breaks less than 5 mm, not extending between tops of 2 mucosal folds) esophagitis with no bleeding was found 34 to 35 cm from the incisors. Biopsies were taken with a cold forceps for histology. Verification of patient identification for the specimen was done. Estimated blood loss was minimal. A moderate Schatzki ring was found in the lower third of the esophagus. A guidewire was placed and the scope was withdrawn. Dilation was performed with a Savary dilator with no resistance at 42 Fr. The dilation site was examined following endoscope reinsertion and showed moderate improvement in luminal narrowing. Estimated blood loss was minimal. A small hiatal hernia was present. One oozing cratered gastric ulcer with pigmented material was found in the gastric body. The lesion was 6 mm in largest dimension. Coagulation for hemostasis using heater probe was successful. Estimated blood loss was minimal. The second portion of the duodenum was normal. Impression: - LA Grade A reflux esophagitis. Biopsied. - Moderate Schatzki ring. Dilated. - Small hiatal hernia. - Oozing gastric ulcer with pigmented material. Treated with a heater probe. - Normal second portion of the duodenum. Recommendation: - Discharge patient to home. - Advance diet as tolerated. - Continue present medications. - No aspirin, ibuprofen, naproxen, or other non-steroidal anti-inflammatory drugs for 7 days. - Repeat upper endoscopy in 1 year for surveillance based on pathology results. - Return to GI office. - Use Protonix (pantoprazole) 40 mg PO BID for 8 weeks. Procedure Code(s): --- Professional --- 19504, 59, Esophagogastroduodenoscopy, flexible, transoral; with control of bleeding, any method 30863, Esophagogastroduodenoscopy, flexible, transoral; with insertion of guide wire followed by passage of dilator(s) through esophagus over guide wire 10503, 59, Esophagogastroduodenoscopy, flexible, transoral; with biopsy, single or multiple 58537, 59, Moderate sedation services provided by the same physician or other qualified health long term acute care registered nurse performing the diagnostic or therapeutic service that the sedation supports, requiring the presence of an independent trained observer to assist in the monitoring of the patient's level of consciousness and physiological status; initial 15 minutes of intraservice time, patient age 5 years or older CPT copyright 2017 [employer]. All rights reserved. The codes documented in this report are preliminary and upon hcc coders review may be revised to meet current compliance requirements. Faraz Church DO 03/17/2021 10:58:33 AM This report has been signed electronically. Number of Addenda: 1 Note Initiated On: 03/17/2021 9:52 AM Addendum Number: 1 Addendum Date: 11/04/2021 6:18:06 AM MAC was used instead of moderate sedation for the patient. Faraz Church DO 11/04/2021 6:18:13 AM This report has been signed electronically.
[2021-03-17 11:00] VITALS: BP 116/54; BP 122/74; PULSE 47; RESP 18; O2SAT 95
[2021-03-17 11:05] VITALS: BP 122/74; BP 125/62; PULSE 48; RESP 13; O2SAT 97
--- NOTE | 2021-03-17 11:06 | OP.COLON_ITS ---
Patient Name: Alize Macedo Procedure Date: 03/17/2021 10:24 AM Date of : 1950 Age: 70 Procedure: Colonoscopy Indications: Hematochezia Providers: Faraz Church DO Referring MD: Faraz Church DO Medicines: See the Anesthesia note for documentation of the administered medications Patient Profile: This is a 70 year old female. Refer to note in patient chart for documentation of history and physical. Patient has symptoms of chronic abdominal cramping. Last Colonoscopy: 10 years ago. Complications: No immediate complications. Procedure: Pre-Anesthesia Assessment: - Prior to the procedure, a History and Physical was performed, and patient medications and allergies were reviewed. The patient is competent. The risks and benefits of the procedure and the sedation options and risks were discussed with the patient. All questions were answered and informed consent was obtained. Patient identification and proposed procedure were verified by the physician in the pre-procedure area. Mental Status Examination: alert and oriented. Airway Examination: normal oropharyngeal airway and neck mobility. Respiratory Examination: clear to auscultation. CV Examination: normal. Prophylactic Antibiotics: The patient does not require prophylactic antibiotics. Prior Anticoagulants: The patient has taken no previous anticoagulant or antiplatelet agents. ASA Grade Assessment: II - A patient with mild systemic disease. After reviewing the risks and benefits, the patient was deemed in satisfactory condition to undergo the procedure. The anesthesia plan was to use moderate sedation / analgesia (conscious sedation). Immediately prior to administration of medications, the patient was re-assessed for adequacy to receive sedatives. The heart rate, respiratory rate, oxygen saturations, blood pressure, adequacy of pulmonary ventilation, and response to care were monitored throughout the procedure. The physical status of the patient was re-assessed after the procedure. After I obtained informed consent, the scope was passed under direct vision. Throughout the procedure, the patient's blood pressure, pulse, and oxygen saturations were monitored continuously. The colonoscope was introduced through the anus and advanced to the terminal ileum. The colonoscopy was performed without difficulty. The patient tolerated the procedure well. The quality of the bowel preparation was adequate. Moderate Sedation: Moderate (conscious) sedation was administered by the endoscopy nurse and supervised by the endoscopist. The following parameters were monitored: oxygen saturation, heart rate, blood pressure, and response to care. Total physician intraservice time was 15 minutes. Scope In: 10:26:08 AM Scope Withdrawal Time 0 hours 18 minutes 35 seconds Scope Out: 10:49:28 AM Total Procedure Duration Time 0 hours 23 minutes 20 seconds Findings: Hemorrhoids were found on perianal exam. A single medium-sized localized angiodysplastic lesion with bleeding was found in the cecum. Coagulation for hemostasis using argon beam at 0.3 liters/minute and 20 reeves was successful. Estimated blood loss was minimal. A few small-mouthed diverticula were found in the sigmoid colon. The exam was otherwise without abnormality on direct and retroflexion views. Impression: - Hemorrhoids found on perianal exam. - A single bleeding colonic angiodysplastic lesion. Treated with argon beam coagulation. - Diverticulosis in the sigmoid colon. - The examination was otherwise normal on direct and retroflexion views. - No specimens collected. Recommendation: - Discharge patient to home. - Resume previous diet. - Continue present medications. - Repeat colonoscopy in 5 years for surveillance. - Return to GI office. Procedure Code(s): --- Professional --- 72772, Colonoscopy, flexible; with control of bleeding, any method 37440, 59, Moderate sedation services provided by the same physician or other qualified health home care chaplain performing the diagnostic or therapeutic service that the sedation supports, requiring the presence of an independent trained observer to assist in the monitoring of the patient's level of consciousness and physiological status; initial 15 minutes of intraservice time, patient age 5 years or older CPT copyright 2017 [employer]. All rights reserved. The codes documented in this report are preliminary and upon gravure press set up operator review may be revised to meet current compliance requirements. Faraz Church DO 03/17/2021 11:06:09 AM This report has been signed electronically. Number of Addenda: 1 Note Initiated On: 03/17/2021 10:24 AM Addendum Number: 1 Addendum Date: 11/04/2021 6:18:22 AM MAC was used instead of moderate sedation for the patient. Faraz Church DO 11/04/2021 6:18:27 AM This report has been signed electronically.
--- NOTE | 2021-03-17 11:07 | OP.CCLET_ITS ---
11/04/2021 Triny Ramos [address] [place] [address] Re : Colonoscopy procedure for Alize Macedo Dear Dr. Ramos This procedure was performed on Wednesday, March 17, 2021. My impressions and recommendations are as follows: Impressions : - Hemorrhoids found on perianal exam. - A single bleeding colonic angiodysplastic lesion. Treated with argon beam coagulation. - Diverticulosis in the sigmoid colon. - The examination was otherwise normal on direct and retroflexion views. - No specimens collected. Recommendations : - Discharge patient to home. - Resume previous diet. - Continue present medications. - Repeat colonoscopy in 5 years for surveillance. - Return to GI office. My findings are described in the full procedure note, which is enclosed. If I can be of further assistance, please feel free to contact me at . Sincerely, Faraz Friend, 03/17/2021 11:06:09 AM This report has been signed electronically.
[2021-03-17 11:10] VITALS: BP 122/74; BP 134/67; PULSE 55; RESP 19; TEMP 36.3; O2SAT 97
[2021-03-17 11:33] VITALS: BP 122/74
== END 2021-03-17 23:59 | disposition home or self-care (01) ==
LOC: EN 09:02 → AC 09:02
PROVIDERS: PCP Internal Medicine; Referring Provider Internal Medicine; Visit Provider Internal Medicine Gastroenterology
PROC: 0DJD8ZZ Inspection of Lower Intestinal Tract, Via Natural or Artificial Opening Endoscopic (ICD-10-PCS; CPT 45378; principal; 2021-03-17 10:10)
DX: K21.00 Gastro-esophageal reflux disease with esophagitis, without bleeding (principal); E11.9 Type 2 diabetes mellitus without complications; K22.2 Esophageal obstruction; K44.9 Diaphragmatic hernia without obstruction or gangrene; K57.30 Diverticulosis of large intestine without perforation or abscess without bleeding; I10 Essential (primary) hypertension; K64.9 Unspecified hemorrhoids; K25.9 Gastric ulcer, unspecified as acute or chronic, without hemorrhage or perforation; K55.21 Angiodysplasia of colon with hemorrhage; Z79.82 Long term (current) use of aspirin; Z79.84 Long term (current) use of oral hypoglycemic drugs; Z79.899 Other long term (current) drug therapy; Z20.822 Contact with and (suspected) exposure to COVID-19; Z87.891 Personal history of nicotine dependence
CPT/HCPCS: 43255; 43239; 43248; 45382; 82962; 87426; 88305; 88313; 88342; C9803; J7120; J2405

== ENCOUNTER 2021-04-22 07:33 | Outpatient (CLI) | payer MEDICARE, SELFPAY ==
--- NOTE | 2021-04-22 07:50 | CT_ITS ---
STUDY: CT ABDOMEN AND PELVIS WITH CONTRAST REASON FOR EXAM: Female, 70 years old. GI Bleed RADIATION DOSAGE (If Supplied By Facility): CTDIvol = ( 25.74 ) mGy, DLP = ( 1312.33 ) mGycm TECHNIQUE: Transaxial images were obtained from the dome of the diaphragm to the symphysis pubis without oral contrast. IV 100mL Isovue-370 was administered. Sagittal and coronal images were reconstructed. Individualized dose optimization techniques were used for this CT. COMPARISON: Comparison is made with prior examination dated 02/02/2021. FINDINGS: The visualized lung bases are unremarkable. The visualized portions of the heart are within normal limits. There is decreased attenuation of the liver consistent with steatosis. Normal gallbladder and extrahepatic biliary system. Normal spleen. Normal pancreas. There is a small, circumscribed, smooth, low attenuation left adrenal mass, consistent with an adrenal adenoma. This measures 1.2 cm. This is unchanged. Normal right adrenal gland. Normal right kidney. There is a 1.1 cm cyst in the left kidney. Normal visualized stomach. Normal small intestine. Normal colon. There is non-visualization of the appendix. There is scattered atherosclerotic calcification of the abdominal aorta, without a demonstrated aneurysm. Normal inferior vena cava. Normal retroperitoneum. Normal urinary bladder. Normal abdominal wall. There are degenerative changes of the visualized lumbar spine. CT/CT ANGIO ABD&PEL W/O&W/DYE IMPRESSION: Diffuse fatty infiltration of the liver. Stable 1.2 cm left adrenal adenoma Electronically Signed: Fercho Ricardo MD at 9:30 EST ,
[2021-04-22 07:51] LABS: CREATININE FINGERSTICK 1.6 mg/dL (0.55-1.02)
== END 2021-04-22 23:59 | disposition home or self-care (01) ==
LOC: CT 07:35
PROVIDERS: PCP Internal Medicine; Referring Provider Internal Medicine Gastroenterology; Visit Provider Internal Medicine Gastroenterology
DX: K92.2 Gastrointestinal hemorrhage, unspecified (principal)
CPT/HCPCS: 74174; Q9967

== ENCOUNTER → 2022-12-15 | Outpatient (CLI) | payer MEDICARE, SELFPAY ==
--- NOTE | 2022-12-15 13:02 | ART_ITS ---
Reason For Study: PVD Procedure A bilateral lower extremity continuous wave Doppler with analog waveform analysis,segmental pressures,and ankle brachial indexes with exercise. Left Segmental Pressures Left brachial= 134mmHg. Left thigh = 107mmHg. Left calf = 84mmHg. Left posterior tibial artery = 79mmHg. Left dorsalis pedis artery = 73mmHg. Left digit = 59 mmHg. The left dorsalis pedis waveforms are biphasic. The left posterior tibial artery waveforms are biphasic. Right Segmental Pressures Right brachial= 128mmHg. Right calf = 77mmHg. Right posterior tibial artery = 76mmHg. Right dorsalis pedis artery = 69mmHg. Right digit = 26 mmHg. The right dorsalis pedis waveforms are biphasic. The right posterior tibial artery waveforms are biphasic. Indices The right ankle brachial index by the dorsalis pedis is 0.51. The right ankle brachial index by the posterior tibial artery is 0.57. The right digital-brachial index is 0.19. The right post exercise ankle brachial index is 0.28. The left ankle brachial index by the dorsalis pedis is 0.54. The left ankle brachial index by the posterior tibial artery is 0.59. The left digital-brachial index is 0.44. The left post exercise ankle brachial index is 0.38. VL/Lower Ext Art Exam w/ Exercise Interpretation Summary Right NORA 0.57, moderate arterial insufficiency . Doppler/PVR waveforms and seg mental pressures reveal distal SFA/popliteal disease. Right lower extremity with abnormal response to exercise and post exercise NORA in the severe category. Left NORA 0.59, moderate arterial insufficiency. Doppler/PVR waveforms and segme ntal pressures reveal ljydk-atolj-[id number] femoral, distal SFA popliteal disease Left lower extremity with abnormal response to exercise and post exercise NORA i n the severe category. Ordering Physician: Triny Ramos Referring Physician: Triny Ramos M.D. Performed By: Miranda Enriquez RVT
== END | disposition home or self-care (01) ==
PROVIDERS: PCP Internal Medicine; Referring Provider Internal Medicine; Visit Provider Internal Medicine
DX: I73.9 Peripheral vascular disease, unspecified (principal)
CPT/HCPCS: 93924

== ENCOUNTER 2023-01-24 15:00 | Outpatient (RCR) | payer MEDICARE, SELFPAY | END 2023-01-26 23:59 | LOC: DC 15:00 | PROVIDERS: PCP Internal Medicine; Referring Provider Internal Medicine; Visit Provider Internal Medicine | DX: E11.40 Type 2 diabetes mellitus with diabetic neuropathy, unspecified (principal) | CPT/HCPCS: 97802; 97803 ==

== ENCOUNTER 2023-03-20 13:13 | Outpatient (RCR) | payer MEDICARE, SELFPAY | END 2023-03-29 23:59 | LOC: DC 13:13 | PROVIDERS: PCP Internal Medicine; Referring Provider Internal Medicine; Visit Provider Internal Medicine | DX: E11.40 Type 2 diabetes mellitus with diabetic neuropathy, unspecified (principal) | CPT/HCPCS: 97803 ==

== ENCOUNTER → 2024-11-13 | Outpatient (CLI) | payer MEDICARE, SELFPAY ==
--- NOTE | 2024-11-13 12:40 | NEURO ---
NCS and/or EMG Patient Report Ordering Doctor: Triny Ramos DATE OF SERVICE: 11/13/24 Alize presents with complaints of numbness and tingling in both lower legs. She has a long history of diabetes. Electrodiagnostic findings: Left peroneal motor nerve demonstrates normal distal latency, amplitude and conduction velocity. Right peroneal motor nerve demonstrates prolonged latency with normal amplitude and reduced conduction velocity. No significant drop in conduction across the fibular head. Tibial motor nerve demonstrates normal distal latency and amplitude bilaterally with reduced conduction velocities. Prolonged peroneal and tibial F?waves bilaterally. Prolonged H?reflex bilaterally. Sensory sponsors are not obtainable. Motor units of increased amplitude and duration noted bilaterally in the tibialis anterior. Electrodiagnostic impression: This an abnormal study in the lower limbs 1 Electrodiagnostic findings suggestive of peripheral polyneuropathy, with motor and sensory nerve involvement and evidence of demyelination. 2 No electrodiagnostic evidence is noted for lumbosacral radiculopathy Multi Select Codes Neurology Neurology Interp Codes: 22180-53 Musc test done w/n test comp (interp) (2) and 50407-19 Nrv cndj test 9-10 studies (interp)
== END | disposition home or self-care (01) ==
LOC: PSN 08:45
PROVIDERS: PCP Internal Medicine; Referring Provider Internal Medicine; Visit Provider Internal Medicine
DX: R20.8 Other disturbances of skin sensation (principal)
CPT/HCPCS: 95886; 95911

== ENCOUNTER 2025-02-19 09:17 | Emergency (ER) | payer MEDICARE, SELFPAY ==
[2025-02-19] VITALS (9 sets, daily range): BP systolic 128–161; BP diastolic 72–105; PULSE 70–135; RESP 11–20; TEMP 35.7–36.5; O2SAT 95–98; BMI 33.2
--- NOTE | 2025-02-19 09:30 | EKG12_ITS ---
Test Reason : Blood Pressure : */* mmHG Vent. Rate : 86 BPM Atrial Rate : 86 BPM P-R Int : 140 ms QRS Dur : 72 ms QT Int : 370 ms P-R-T Axes : 9 73 70 degrees QTcB Int : 442 ms Sinus rhythm with Premature atrial complexes Low voltage QRS Borderline ECG Confirmed by Adonis Kelley ([id number]), editorial director LIZ PETERSON ([id number]) on 02/21/2025 8:05:55 AM Referred By: Confirmed By: Adonis Kelley
[2025-02-19 09:54] LABS: Hematocrit 40.4 % (37-47); Hemoglobin 14.3 g/dL (12.0-15.0); Immature Granulocytes Count 0.120 X10^3/uL (0.0-0.0); Mean Corp Hgb Conc 35.4 g/dL (32-36); Mean Corpuscular Volume 81.3 fL (81-99); Mean Platelet Vol. 8.5 fl (6.2-12.0); NRBC Flagged by Analyzer 0 % (0-5); Platelet Count 370 K/mm3 (150-450); RBC Distribution Width CV 11.9 % (11.6-14.6); RBC Distribution Width SD 35.2 fl (35.1-43.9); Red Blood Count 4.97 M/mm3 (4.2-5.4); White Blood Count 4.6 K/mm3 (4.4-11.0)
[2025-02-19] MEDS: 0.9% Normal Saline (1000mL) 1,000 ML 1000 ML IV (09:55)
[2025-02-19 10:10] LABS: AST(SGOT) 15 U/L (<=31); Alanine Aminotransfer ALT/SGPT 18 U/L (<=34); Albumin, Serum 3.7 g/dL (3.4-4.8); Alkaline Phosphatase 73 U/L (35-104); Anion Gap 18 (7-18); BUN 38 mg/dL (4-19); BUN/Creat Ratio 26.8 RATIO (10-20); Calcium,Total 9.6 mg/dL (7.6-11.0); Carbon Dioxide 20.8 mmol/L (20.0-29.0); Chloride 93 mmol/L (96-106); Globulin 3.5 g/dL (2.2-4.2); Glucose 372 mg/dL (70-99); Lipase 52 U/L (13-75); Potassium 4.1 mmol/L (3.5-5.1)
[2025-02-19 11:01] LABS: Mucous, Urine 0 SEEN /hpf (<or=2+); Red Blood Cells-Urine 0 SEEN /hpf (0-5)
[2025-02-19 11:03] LABS: Color, Urine Yellow (Yellow); Glucose, Dipstick 1000 mg/dl (Normal); Ketone-Dipstick 15 mg/dl (Negative); Leukocyte Esterase-Dipstick 500 /ul (Negative); Nitrite-Dipstick Negative (Negative); Occult Blood-Urine 10 /ul (Negative); Protein-Dipstick 30 mg/dl (Negative); Specific Gravity, Urine 1.020 (1.002-1.030); Urine Bilirubin Dipstick Negative (Negative)
[2025-02-19 11:12] LABS: Squamous Epithelial Cells - UA 10-25 SEEN /hpf (5-10)
[2025-02-19] MEDS: 0.9% Normal Saline (1000mL) 1,000 ML 999 ML IV (12:37)
--- NOTE | 2025-02-19 12:59 | EX.ED.DYSGE1 ---
HPI History of Present Illness Chief Complaint: General Illness Informant: patient Narrative Narrative: Patient is a 74-year-old female with history of hypertension, chronic pain, chronic airway obstruction, diabetes, hyperlipidemia and depression who states she recently had a medication change. She is presenting with 2 weeks cough as well as a week of fatigue, headache and fevers. No she is been having significant diarrhea and did have an episode of vomiting 1 week ago but have since resolved. Still feeling nauseous. Denies any blood in her vomit or her stool. States she was having pain in her lower abdomen but that has since resolved. She notes she is feeling lightheaded and dizzy. Son states she just laid in bed for 3 to 4 days. She cannot tell higher temperature june. No she has not been drinking or eating much. States she has not been taking her medication the past few days because she has been feeling so unwell. She is not sure if her symptoms are related to new medications or virus. She does tell me that her nephew recently came back from a cruise and had similar symptoms. No other complaints or concerns reported at this time. [facility] Medical History Gastric ulcer Wears dentures Wears glasses Diabetes Excessive bleeding Easy bruising Back pain Injury of back Injury of head and neck History of GI bleed Former smoker Shortness of breath on exertion History of stress test Hypertension Home Medications ?Medication ?Instructions ?Recorded ?Last Taken ?Type amlodipine 5 mg tablet 5 mg PO QHS 12/20/12 Unknown History glimepiride 2 mg tablet 4 mg PO BID 12/20/12 Unknown History metformin 500 mg tablet 1,000 mg PO BIDCM 12/20/12 Unknown History simvastatin 20 mg tablet 20 mg PO QHS 12/20/12 Unknown History dulaglutide 0.75 mg/0.5 mL 0.75 mg SQ QWEEK 07/13/19 Unknown History subcutaneous pen injector aspirin 81 mg capsule 81 mg PO DAILY 03/12/21 03/13/21 History cholecalciferol (vitamin D3) 1,250 1,250 mcg PO QWEEK 03/12/21 Unknown History mcg (50,000 unit) capsule empagliflozin 10 mg tablet 10 mg PO DAILY 03/12/21 Unknown History (Jardiance) lisinopril 10 mg tablet 10 mg PO BID 03/12/21 03/17/21 06:00 History metformin 500 mg tablet 500 mg PO 1200 03/12/21 Unknown History metoprolol tartrate 50 1 tab PO DAILY 03/12/21 Unknown History mg-hydrochlorothiazide 25 mg tablet pantoprazole 40 mg tablet,delayed 40 mg PO QAM #90 tabs 05/17/21 Unknown Rx release sucralfate 1 gram tablet 1 g PO QACHS #120 tabs 05/17/21 Unknown Rx levothyroxine 50 mcg capsule 50 mcg PO QDAY #90 caps 01/10/25 Unknown Rx ondansetron 4 mg disintegrating 4 mg PO Q8H PRN PRN Nausea #10 tabs 02/19/25 Unknown Rx tablet Allergy/AdvReac Type Severity Reaction Status Date / Time iodine Allergy Shortness Verified 02/19/25 09:18 of breath Penicillins (PCN) AdvReac Other Verified 02/19/25 09:18 Surgical History Hx of bilateral cataract extraction History of surgery Hx of amputation of lesser toe Hx of tonsillectomy Social History Smoking Status: Former smoker ROS ROS ED Constitutional Constitutional ED: Reports chills, fever(s) and other Eyes Eyes: Denies blurry vision ENT ENT ED: Reports rhinorrhea Cardiovascular Cardiovascular: Denies chest pain Respiratory/Chest Respiratory/Chest: Reports cough; Denies dyspnea Gastrointestinal Gastrointestinal: Reports diarrhea, nausea and vomiting Musculoskeletal Musculoskeletal: Reports arthralgias and myalgias Integumentary Denies rash Neurologic Neurologic: Reports headache(s) and weakness Hematologic/Lymphatic Hematologic/Lymphatic: Denies easy bleeding or easy bruising EXAM Physical Exam Const Vital Signs: 02/19/25 09:18 02/19/25 11:17 02/19/25 12:21 Temperature 96.3 F L Temperature Source Temporal Pulse Rate 135 H 100 Pulse Rate [Lying] 84 Pulse Rate [Sitting (for 1 minute prior to obtaining)] 93 Pulse Rate [Standing (for 1 minute prior to obtaining)] 100 Respiratory Rate 20 H 18 Blood Pressure 128/72 H 148/98 H Blood Pressure [Lying] 148/105 H Blood Pressure [Sitting (for 1 minute prior to obtaining)] 160/81 H Blood Pressure [Standing (for 1 minute prior to obtaining)] 136/77 H Blood Pressure Mean 90 114 Blood Pressure Mean [Lying] 119 Blood Pressure Mean [Sitting (for 1 minute prior to obtaining)] 107 Blood Pressure Mean [Standing (for 1 minute prior to obtaining)] 96 Pulse Ox 98 97 Oxygen Delivery Method Room Air 02/19/25 12:46 02/19/25 12:46 02/19/25 13:00 Temperature 97.7 F L Temperature Source Oral Pulse Rate 84 86 89 Pulse Rate [Lying] Pulse Rate [Sitting (for 1 minute prior to obtaining)] Pulse Rate [Standing (for 1 minute prior to obtaining)] Respiratory Rate 13 11 L 12 Blood Pressure 152/80 H Blood Pressure [Lying] Blood Pressure [Sitting (for 1 minute prior to obtaining)] Blood Pressure [Standing (for 1 minute prior to obtaining)] Blood Pressure Mean 104 Blood Pressure Mean [Lying] Blood Pressure Mean [Sitting (for 1 minute prior to obtaining)] Blood Pressure Mean [Standing (for 1 minute prior to obtaining)] Pulse Ox 98 98 95 Oxygen Delivery Method Room Air 02/19/25 13:15 02/19/25 13:30 02/19/25 13:42 Temperature 97.7 F L Temperature Source Pulse Rate 87 70 Pulse Rate [Lying] Pulse Rate [Sitting (for 1 minute prior to obtaining)] Pulse Rate [Standing (for 1 minute prior to obtaining)] Respiratory Rate 18 12 Blood Pressure 161/73 H 161/73 H Blood Pressure [Lying] Blood Pressure [Sitting (for 1 minute prior to obtaining)] Blood Pressure [Standing (for 1 minute prior to obtaining)] Blood Pressure Mean 95 102 Blood Pressure Mean [Lying] Blood Pressure Mean [Sitting (for 1 minute prior to obtaining)] Blood Pressure Mean [Standing (for 1 minute prior to obtaining)] Pulse Ox 97 98 97 Oxygen Delivery Method Room Air 02/19/25 13:45 Temperature Temperature Source Pulse Rate Pulse Rate [Lying] Pulse Rate [Sitting (for 1 minute prior to obtaining)] Pulse Rate [Standing (for 1 minute prior to obtaining)] Respiratory Rate Blood Pressure Blood Pressure [Lying] Blood Pressure [Sitting (for 1 minute prior to obtaining)] Blood Pressure [Standing (for 1 minute prior to obtaining)] Blood Pressure Mean Blood Pressure Mean [Lying] Blood Pressure Mean [Sitting (for 1 minute prior to obtaining)] Blood Pressure Mean [Standing (for 1 minute prior to obtaining)] Pulse Ox 97 Oxygen Delivery Method Positive well nourished and well developed General Appearance ED: well developed and NAD HEENT Reports dry mucous membranes Mouth ED: Yes dry mucous membranes Mouth: dry mucous membranes Eyes PERRL Neck supple and no JVD Chest Wall inspection of chest normal and palpation of chest normal Resp normal respiratory effort and clear to auscultation bilaterally Cardio regular rhythm and no murmurs Rate: tachycardic GI normal to inspection, nondistended, normoactive bowel sounds Extremity normal to inspection General Extremety ED: Negative for edema General Extremity: Negative for edema Neuro oriented x3 Sensorium / Orientation: alert Motor Exam: general weakness Psych mental status grossly normal Skin no rashes or lesions noted and no wounds MDM MDM MDM Narrative Medical decision making narrative: Patient evaluated for generalized weakness, lightheadedness, diarrhea and cough. Has been sick for 2 weeks with worsening symptoms in the past week. Had a hard time moving around again out of bed. Feels that she is dehydrated. Upon arrival blood pressure normal but she is mildly tachycardic and temperature is mildly low at 96.3. Differential includes dehydration, ALMITA, infection, sepsis and electrolyte derangement. Patient denies any recent antibiotics and has no history of C. difficile. She does not have a leukocytosis and no diarrhea emergency room so lower suspicion for C. difficile colitis as a cause of her diarrhea. CBC largely unremarkable does have a leftward shift with 2.6 immature granulocytes. CMP shows mild hyponatremia the sodium of 131 however she is also hyperglycemic with a glucose of 372. Creatinine mildly elevated 1.4 but this appears to be her baseline. Liver panel normal. EKG is normal sinus rhythm and does not show any ischemic changes. Lower suspicion for ACS or cardiac problem as the cause of her symptoms. Urinalysis is consistent with dehydration but does have 500 leukocyte esterase with 0 bacteria. Is contaminated but does show 25-50 hyaline cast. Will send off for culture. She denies any urinary symptoms at this time. She is positive for COVID-19 which I suspect is actually cause of her symptoms. Chest x-ray viewed by myself does not show any acute infiltrate. Is given IV fluids. Is no longer dizzy and heart rate/blood pressure have improved however she is orthostatic with standing. Is given a second liter. Discussed observation in the hospital versus discharge home. At this time she would try outpatient management. Will be discharged home with a prescription for Zofran. Counseled on pushing fluids. Counseled on return precautions. Discharged home in stable and improved condition. Lab Data Attestation: I reviewed the patient's lab results. Labs: Laboratory Results - last 24 hr 02/19/25 02/19/25 09:45 10:57 WBC 4.6 RBC 4.97 Hgb 14.3 Hct 40.4 MCV 81.3 MCH 28.8 MCHC 35.4 RDW Std Deviation 35.2 RDW Coeff of Buzz 11.9 Plt Count 370 MPV 8.5 Immature Gran % (Auto) 2.600 H Neut % (Auto) 54.6 Lymph % (Auto) 25.9 [place] % (Auto) 11.8 H Eos % (Auto) 4.2 Baso % (Auto) 0.9 Absolute Neuts (auto) 2.5 Absolute Lymphs (auto) 1.18 Nucleated RBC % 0 Sodium 131 L Potassium 4.1 Chloride 93 L Carbon Dioxide 20.8 Anion Gap 18 BUN 38 H Creatinine 1.40 H Est GFR (MDRD) Non-Af 40 L BUN/Creatinine Ratio 26.8 H Glucose 372 H Calcium 9.6 Total Bilirubin 0.40 AST 15 ALT 18 Alkaline Phosphatase 73 Total Protein 7.2 Albumin 3.7 Globulin 3.5 Albumin/Globulin Ratio 1.1 Lipase 52 Urine Color Yellow Urine Clarity Sl. Cloudy Urine pH 5.0 Ur Specific [place] 1.020 Urine Protein 30 H Urine Glucose (UA) 1000 H Urine Ketones 15 H Urine Occult Blood 10 H Urine Nitrite Negative Urine Bilirubin Negative Urine Urobilinogen Normal Ur Leukocyte Esterase 500 H Urine RBC 0 SEEN Urine WBC 25-50 SEEN Ur Squamous Epith Cells 10-25 SEEN Urine Bacteria 0 SEEN Hyaline Casts 25-50 SEEN Urine Mucus 0 SEEN Radiography Diagnostic Testing: Clinical Impression(s) from Imaging Studies Chest X-Ray 02/19/25 13:54 IMPRESSION: No active cardiopulmonary disease. Reading Location: [place] [id number] Rhythm Strip Rhythm Strip: Sinus Rhythm Rate: 86 Ectopy: None EKG Initial EKG: Attestation: I personally reviewed and interpreted this EKG as follows: Interpretation: Sinus Rhythm Comments: Normal sinus rhythm with PACs at a rate of 86 bpm Normal axis Normal intervals Normal ST segments Low voltage QRS Prior EKG tracings: available for review Prior: Unchanged Discharge Plan Triage Chief Complaint: General Illness ED Provider: India Correia Dx/Rx/DC Orders Clinical Impression: COVID-19, Dehydration, Orthostatic hypotension, Diarrhea Instructions: ED Dehydration (Adult), ED Viral Syndrome (Adult) Prescriptions: New ondansetron 4 mg tablet,disintegrating 4 mg PO Q8H PRN PRN (Reason: Nausea) Qty: 10 0RF No Action pantoprazole 40 mg tablet,delayed release (DR/EC) 40 mg PO QAM Qty: 90 3RF sucralfate 1 gram tablet 1 g PO QACHS Qty: 120 0RF metformin 500 MG tablet 1,000 mg PO BIDCM amlodipine 5 MG tablet 5 mg PO QHS glimepiride 2 MG tablet 4 mg PO BID simvastatin 20 MG tablet 20 mg PO QHS dulaglutide 0.75 MG/0.5 ML pen injector 0.75 mg SQ QWEEK metformin 500 mg tablet 500 mg PO 1200 Patient Comments: one Tablet 2 tabs bid and one at lunch metoprolol ta-hydrochlorothiaz 50-25 mg tablet 1 tab PO DAILY Patient Comments: TAKE 1 TABLET BY MOUTH EVERY DAY lisinopril 10 mg tablet 10 mg PO BID Patient Comments: TAKE 1 TABLET TWICE DAILY cholecalciferol (vitamin D3) 1,250 mcg (50,000 unit) capsule 1,250 mcg PO QWEEK Patient Comments: take 1 Capsule once weekly Jardiance 10 mg tablet 10 mg PO DAILY Patient Comments: TAKE 1 TABLET ONCE DAILY aspirin 81 mg Capsule 81 mg PO DAILY levothyroxine 50 mcg capsule 50 mcg PO QDAY Qty: 90 3RF Primary Care Provider: Triny Ramos Referrals: Triny Ramos DO [Primary Care Provider, Internal Medicine] Activity Restrictions/Additional Instructions: Your workup today was positive for COVID-19 viral infection. This is likely the cause of your cough and symptoms. Your lab work did show dehydration. You were given 2 L of IV fluid today. Your chest x-ray did not show any pneumonia. Please resume taking your home medications including your insulin especially if you are starting to eat or drink more. Your urine was sent for culture and you will be contacted if you require antibiotics for UTI. If you feel like you are worsening please do not hesitate to return the emergency room. Please otherwise follow-up with your primary care doctor later this week. Print Language: Japanese Disposition Disposition: Home, Self Care
--- NOTE | 2025-02-19 13:54 | RAD_ITS ---
PROCEDURE: CHEST 1 VIEW (PORTABLE) 02/19/2025 REASON FOR EXAM: COUGH, + COVID TECHNIQUE: Frontal view of the chest. COMPARISON: Limited CT chest dated 11/05/2024. FINDINGS: Lungs: Lungs clear of pneumonia and congestion. Pleura: No pleural effusions, thickening, or pneumothorax. Heart: Normal in size and configuration. Mediastinum/Ami: Unremarkable. Great vessels: Unremarkable. Bones/soft tissues: Unremarkable. RAD/Chest 1 View (Portable) IMPRESSION: No active cardiopulmonary disease. Reading Location: [place] [address]
== END 2025-02-19 14:40 | disposition home or self-care (01) ==
PROVIDERS: Emergency Provider Emergency Medicine; PCP Internal Medicine; Visit Provider Emergency Medicine
DX: U07.1 COVID-19 (principal); E11.9 Type 2 diabetes mellitus without complications; Z87.891 Personal history of nicotine dependence; I95.1 Orthostatic hypotension; I10 Essential (primary) hypertension; E78.5 Hyperlipidemia, unspecified; E86.0 Dehydration; R19.7 Diarrhea, unspecified; Z79.82 Long term (current) use of aspirin; F32.A Depression, unspecified; R11.2 Nausea with vomiting, unspecified; R42 Dizziness and giddiness; Z79.899 Other long term (current) drug therapy
CPT/HCPCS: 71045; 80053; 81001; 83690; 85025; 87086; 87088; 87631; 93005; 96361; 96374; 99285; A4216; J2405